=== PATIENT | male | born 1950 | race American Indian/Alaskan Native ===

== ENCOUNTER 2019-02-11 15:10 | Emergency (ER) | payer MEDICARE ==
[~2019-02-11] VITALS: Ht 177.8 cm; Wt 108.9 kg
[2019-02-11] MEDS ORDERED: HYDROCHLOROTHIA25 MG PO (15:37)
[2019-02-11] MEDS ORDERED: LOSARTAN POTASS25 MG PO (15:37)
== END 2019-02-11 17:01 | disposition home or self-care (01) ==
LOC: ED 15:10
DX: E86.0 Dehydration (principal); I10 Essential (primary) hypertension; F17.200 Nicotine dependence, unspecified, uncomplicated
CPT/HCPCS: 80053; 81001; 85025; 99284; J7120